=== PATIENT | female | born 1960 | race Caucasian/White ===

== ENCOUNTER 2019-05-01 14:30 | Outpatient (RCR) | payer OTHER, SELFPAY ==
--- NOTE | 2019-03-11 14:23 | PTOPEVAL ---
INITIAL PHYSICAL THERAPY EVALUATION and PLAN OF CARE Thank you for referring Annabella to [facility]. Please review, sign, date and return this plan of care MAGAN. Annabella will be seen 2x/wk x 4 wks in PT. I agree with and certify that the following plan of care is medically necessary. Referring Physician Date Admitting Provider: Attending Provider: PHYSICIAN NOT ON STAFF Referring Provider: *PT Outpatient Evaluation Start: 03/11/19 12:47 Freq: Status: Active Protocol: Document 03/11/19 12:35 GOOD (Rec: 03/11/19 14:23 GOOD [id number]) Therapy Assessment Status Assessment Status Assessment Status Evaluation Outpatient Past Medical History Neurological History Hx Neurological Disorders No Significant History Cardiovascular History Hx Cardiac Catheterization Yes Hx Hypercholesterolemia Yes Hx Hypertension Yes Respiratory History Hx Respiratory Disorders No Significant History Gastrointestinal History Hx Gastrointestinal Disorders No Significant History Genitourinary History Hx Genitourinary Disorders No Significant History Musculoskeletal History Hx Back Pain Yes: 2 surgeries with plates- upper/lower Hx Joint Replacement Yes: bilat TKA 2017 Hx Orthopedic Surgery Yes: patellar tendon - bilat - 02/02/18 Endocrine History Hx Endocrine Disorders No Significant History Evaluation Information Problem Diagnosis non traumatic rupture patellar tendon Subjective Information total knees done - all was Query Text:As Reported By Patient/ going well - fell after 2nd Family TKA - ruptured both patellar tendons - bilat surgery - in immobilizers - rehab x 6-8 wks - left with using walker End of February 2018 - realized that the tendon repair didn't hold - June 2018 - did a reconstruction of R patellar tendon - home therapy October 2018 - did same type of reconstruction with L patellar tendon - using walker - current status - wears bilateral knee braces - uses walker - does have a wheeled walker - has had several falls , last slid down from chair - landed on bottom Sleeping - knees don't bother her - back will
--- NOTE | 2019-03-14 12:33 | PCPTNOTE ---
Patient called & cancelled scheduled appointment this date due to weather.
--- NOTE | 2019-04-10 13:10 | PCPTNOTE ---
Patient called & cancelled scheduled appointment this date due to unknown reason. Will need to r/s re-eval appointment.[ ]
--- NOTE | 2019-05-01 16:26 | PTOPEVAL ---
PHYSICAL THERAPY RE EVALUATION AND UPDATED PLAN OF CARE Thank you for referring Annabella to [facility]. Further skilled PT is to continue 2x/wk x 6 wks. Please review, sign, date and return this plan of care MAGAN. I agree with and certify that the following plan of care is medically necessary. Referring Physician Date Admitting Provider: Attending Provider: PHYSICIAN NOT ON STAFF Referring Provider: *PT Outpatient Evaluation Start: 03/11/19 12:47 Freq: Status: Active Protocol: Document 05/01/19 14:40 GOOD (Rec: 05/01/19 16:25 GOOD [email or web address]) Therapy Assessment Status Assessment Status Assessment Status Re-evaluation Evaluation Information Problem Subjective Information Annabella reports that family, Query Text:As Reported By Patient/ friends and MD are pleased Family with her progress - how well she is walking and moving around. She stated that she has been able to visit her childrens' home - both of which require going up and down stairs. She states that she is also able to get her mail now - which requires stair ambulation. She also stated that her MD wants her to continue with PT. Pain Assessment Timing of Pain Assessment Timing of Pain Assessment Assessment Pain Scale Pain Scale Used Numeric (1 - 10) Self Report Pain Assessment Bilateral Knee(s) Reported Pain Level 3 Current Pain Intensity 3 Lowest Pain Intensity 0 Greatest Pain Intensity 7 Pain Score Pain Score 3: Self Report Lower Extremity Muscle Strength Testing Hip Strength Right Hip Flexion Strength 4 Good Hip Extension Strength 5 Normal Hip Abduction Strength 3+ Fair + Hip Medial Rotation Strength 5 Normal Hip Lateral Rotation Strength 4 Good Left Hip Flexion Strength 4 Good Hip Extension Strength 5 Normal Hip Abduction Strength 3+ Fair + Hip Medial Rotation Strength 4+ Good + Hip Lateral Rotation Strength 4 Good Knee Strength Right Knee Flexion Strength 5 Normal Knee Extension Strength 3- Fair - Left Knee Flexion Strength 5 Normal Knee Extension Strength 3- Fair - Gait Assessment Gait Pattern Assessment Other Gait Observations with wheeled walker - heel/toe progression, WFL knee flexion present - step through gait pattern - angel
--- NOTE | 2019-05-12 11:00 | PCPTNOTE ---
Patient called & cancelled scheduled appointment this date due to illness.
--- NOTE | 2019-05-15 10:38 | PCPTNOTE ---
Patient called & cancelled scheduled appointment this date due to illness.
--- NOTE | 2019-05-20 09:58 | PCPTNOTE ---
Patient called & cancelled scheduled appointment this date due to Covid 19.
--- NOTE | 2019-06-10 11:47 | PCPTNOTE ---
PHYSICAL THERAPY DISCHARGE NOTE Admitting Provider: Attending Provider: PHYSICIAN NOT ON STAFF Patient:Annabella Hayes Date of :1960 Annabella has not returned for any further treatments since 05/01/2019, therefore she will be discharged at this time. Patient?s initial visit was on 03/11/2019 12:30 and she has had a total of 8 visits. The goals have been partially met. Her status is of 05/01/2019 re-evaluation note. More authorized visits were obtained, but Annabella cancelled those appointments due to COVID 19. Thank you for referring Annabella to [facility]. Please review, sign, date and return this discharge summary MAGAN. I have been updated about Annabella's current status and I agree with discharge from the above service at this time. Referring Physician Date
== END 2019-06-09 23:59 | disposition home or self-care (01) ==
LOC: ANHPT 14:30
DX: M66.269 Spontaneous rupture of extensor tendons, unspecified lower leg (principal)
CPT/HCPCS: 97014; 97110; 97112; 97162; G0283